=== PATIENT | male | born 1950 | race Caucasian/White ===

== ENCOUNTER → 2019-06-08 | Outpatient (CLI) | payer OTHER ==
[~2019-06-08] VITALS: Ht 182.9 cm; Wt 90.7 kg
[~2019-06-08] MED LIST: ALTACE5 MG PO; ASPIR 8181 M1 PO; SIMVASTATIN40 MG PO; VENTOLIN HFA INH8 GM INH
--- NOTE | 2019-06-13 11:07 | PATH ---
[facility] [place] [address] PATHOLOGY RPT PROCEDURE Name: BRANDON BAÑUELOS Room #: REG NICOLE Carissa.#: [id number] Admission: 06/08/19 Date of : 54 Discharge: Report #: [id number] Path Case #: [id number] [facility] Accession Number: [id number] . 01 Material submitted: . PART A: stomach - BIOPSY OF GASTRITIS TO R/O H. PYLORI PART B: esophagus - BIOPSY OF DISTAL ESOPHAGUS TO R/O MONROE'S. Modifiers: distal PART C: cecum - POLYP AT CECUM PART D: colon - POLYP AT SIGMOID COLON. Modifiers: sigmoid PART E: rectum - POYLP AT RECTUM X2 . 01 Clinical history: . Preop DX: Dysphagia, hx of polyps Postop DX: Grade B erosive esophagitis, possible monroe's, colon polyps A. r/o h. pylori B. r/o monroe's . 02 Diagnosis: A. Gastric mucosa, gastritis rule out H. pylori, endoscopic biopsy: - Mild chronic inflammation. - Negative for intestinal metaplasia or atrophy. - Negative for Helicobacter pylori (properly controlled immunohistochemical stain performed). . B. Gastroesophageal mucosa, distal esophagus to rule out Monroe's, endoscopic biopsy: - Gastric fundic-type mucosa with mild chronic inflammation. - Negative for intestinal metaplasia or dysplasia. - Squamous mucosa with mild esophagitis. . C. Polyp, at cecum, endoscopic biopsy: - Inflamed hyperplastic polyp. - Negative for dysplasia. . D. Polyp, at sigmoid colon, endoscopic biopsy: - Hyperplastic polyp. - Negative for dysplasia. . E. Polyp x 2, at rectum, endoscopic biopsy: - Hyperplastic polyp, multiple fragments. - Negative for dysplasia. (IUV/db; 06/10/2019) LBQ 06/10/2019 1234 Local . 02 Electronically signed: . Lizett Stockton MD, [place] [address] PATHOLOGY RPT PROCEDURE Name: BRANDON BAÑUELOS Room #: REG CLI Mohamud.#: [id number] Admission: 06/08/19 Date of : 54 Discharge: Report #: [id number] Path Case #: [id number]- [id number] . 01 Gross description: . A. Received in formalin labeled "Brandon Bañuelos BX of gastritis to r/o h. pylori," are four segments of gale-brown soft tissue measuring 0.7 x 0.6 x 0.1 cm in aggregate dimensions and ranging from 0.3 to 0.7 cm in maximum dimension. The specimen is submitted entirely in cassette A1. . B. Received in formalin labeled "Brandon Bañuelos, BX of distal esophagus to r/o monroe's," are two segments of gale-brown soft tissue measuring 0.4 x 0.2 x 0.1 cm and 0.5 x 0.2 x 0.1 cm in greatest dimensions. The specimen is submitted entirely in cassette B1. . C. Received in formalin labeled "Borders, Rbandon, polyp at cecum," are five segments of pale gale soft tissue measuring 0.5 x 0.5 x 0.1 cm in aggregate dimensions and ranging from 0.1 to 0.5 cm in maximum dimension. The specimen is submitted entirely in cassette C1. The smallest segments may not survive processing. . D. Received in formalin labeled "Borders, Brandon, polyp at sigmoid colon," are two segments of gale-brown soft tissue measuring 0.2 x 0.2 x 0.1 cm and 0.3 x 0.2 x 0.2 cm in greatest dimensions. The specimen is submitted entirely in cassette D1. . E. The specimen is received in formalin labeled "Borders, Brandon, polyp at rectum". The specimen source is listed on the requisition as "polyp at rectum x2". Received are four segments of gale soft tissue measuring 0.5 x 0.4 x 0.2 cm in aggregate dimensions and ranging from 0.2 to 0.3 cm in maximum dimension. The specimen is submitted entirely in cassette E1. ([facility]; 06/09/2019) XDC/XUT 06/09/[address] [place] [address] . 02 Pathologist provided ICD-10: K29.50, K20.8, K51.40, K63.5, K62.1 . 02 CPT . 132601, 592663, 235055, 346192, 306536, Q03546 Specimen Comment: A courtesy copy of this report has been sent to [phone], [phone] Specimen Comment: [id number] Specimen Comment: Report sent to and Specimen Comment: A duplicate report has been generated due to demographic updates. Performed at: [address] [place] [address] [address], [place], [place] [id number] MD Jose Ramon Mccormack MD Phone: [phone] Performed at: 02 [facility] [address] [place] [address] PATHOLOGY RPT PROCEDURE Name: BRANDON BAÑUELOS Room #: REG [facility] Dona.R.#: [id number] Admission: 06/08/19 Date of : 54 Discharge: Report #: [id number] Path Case #: [id number] [facility] [address] [place], [place] [id number] MD Lizett Stockton MD Phone: [phone]
--- NOTE | 2019-06-15 08:11 | P ---
[place] [address] PROCEDURE REPORT Name: BILL GO Room #: REG [facility]#: [id number] Admission: 06/08/19 Attend Phys: Jovan Rome Discharge: Date of : 54 Report #: [id number] THIS REPORT FOR: //name// CC: Jovan Quiñonez MD DATE OF SERVICE: 06/08/2019 PROCEDURE PERFORMED: Colonoscopy with biopsies. HISTORY OF PRESENT ILLNESS: The patient is a 69-year-old male with history of colon polyps, last colonoscopy in 2010. No family history of colon cancer. DESCRIPTION OF PROCEDURE: The risks and benefits of the procedure were explained to the patient, those risks including but not limited to bleeding, perforation and the risk of sedation. He understood these risks and gave informed consent. Sedation was given using propofol per anesthesia. Next, a digital rectal exam was initially performed, which was normal. Next, using a standard Olympus colonoscope, the scope was placed in the patient's anus and advanced under direct vision to the cecum. The overall prep was excellent. In the cecum, there was a 3 mm sessile polyp. This was removed with cold forceps, otherwise normal. The ileocecal valve was normal. The ascending, transverse and descending colon were normal. In the sigmoid colon, there was a 4 mm sessile polyp. This was removed by cold forceps. A few small scattered diverticula also noted. In the rectum, there were two 3-4 mm sessile polyps, both removed by cold forceps. On retroflexion, no abnormalities were noted. The scope was then withdrawn and the procedure terminated. The patient tolerated the procedure well. IMPRESSION: 1. Small colonic polyps as described above. 2. Sigmoid diverticulosis. 3. Otherwise, normal colonoscopy. RECOMMENDATIONS: 1. Await biopsy results. 2. If polyps are hyperplastic, repeat in 10 years; if adenomatous polyps, repeat in 5 years. Thank you for allowing me to participate in his care. <ELECTRONICALLY SIGNED> By: Jovan Batista MD 06/15/19 0811 1125 [id number] Jovan Batista MD /nt
--- NOTE | 2019-06-15 08:11 | P ---
[facility] [place] [address] PROCEDURE REPORT Name: BILL GO Room #: REG [facility]#: [id number] Admission: 06/08/19 Attend Phys: Jovan Rome Discharge: Date of : 54 Report #: [id number] THIS REPORT FOR: //name// CC: Jovan Quiñonez MD DATE OF SERVICE: 06/08/2019 PROCEDURE PERFORMED: Upper endoscopy with biopsies and esophageal dilation. HISTORY OF PRESENT ILLNESS: The patient is a 69-year-old male with a history of intermittent dysphagia. No previous history of upper endoscopy. Denies any significant heartburn. He is also here today for routine followup colonoscopy. He has a history of polyps in the past. DESCRIPTION OF PROCEDURE: The risks and benefits of the procedure were explained to the patient, those risks including but not limited to bleeding, perforation and the risk of sedation. He understood these risks and gave informed consent. Sedation was given using propofol per anesthesia. Next, using a standard Olympus upper endoscope, the scope was placed in the patient's mouth and advanced under direct vision through the esophagus, stomach and into the second portion of the duodenum. The larynx was normal in appearance. The upper and mid esophagus was normal. In the distal esophagus, grade B erosive esophagitis was noted with a possible short segment of Ochoa's. Biopsies were obtained. There was a mild gastritis noted in the fundus and upper body of the stomach. Biopsies were obtained to rule out H. pylori. The pylorus was normal and patent. The duodenal bulb, first and second portion were all normal. The scope was then brought back up into the patient's stomach and a Savary guidewire was inserted through the scope, leaving the guidewire in place as the scope was then withdrawn. Next, a 51-Upper Sorbian Savary dilation of the esophagus was then performed without difficulty. The wire and dilator were removed. The scope was reintroduced into the patient's stomach. There was no evidence of mucosal tear after dilation. The scope was then withdrawn and the procedure terminated. The patient tolerated the procedure well. IMPRESSION: 1. Grade B erosive esophagitis. 2. 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 3. Mild gastritis. 4. Otherwise, normal upper endoscopy. RECOMMENDATIONS: 1. Await biopsy results. 2. Recommend daily PPI therapy. 3. Observe the patient post-dilation. [address] [address] PROCEDURE REPORT Name: BILL GO [facility]: [facility] [id number] Admission: 06/08/19 Attend Phys: Jovan Rome Discharge: Date of : 54 Report #: [id number] 4. We will proceed with colonoscopy next today. Thank you for allowing me to participate in his care. <ELECTRONICALLY SIGNED> By: Jovan Batista MD 06/15/19 0811 1054 2308 Jovan Batista MD /eileen
== END | disposition home or self-care (01) ==
LOC: GI 08:58
DX: Z12.11 Encounter for screening for malignant neoplasm of colon (principal); Z86.010 Personal history of colon polyps; K51.40 Inflammatory polyps of colon without complications; K57.30 Diverticulosis of large intestine without perforation or abscess without bleeding; K62.1 Rectal polyp; K29.50 Unspecified chronic gastritis without bleeding; R13.19 Other dysphagia; K20.9 Esophagitis, unspecified; I10 Essential (primary) hypertension; E78.5 Hyperlipidemia, unspecified; J43.9 Emphysema, unspecified; F17.210 Nicotine dependence, cigarettes, uncomplicated; Z98.890 Other specified postprocedural states; Z95.1 Presence of aortocoronary bypass graft; Z79.899 Other long term (current) drug therapy; Z79.82 Long term (current) use of aspirin
CPT/HCPCS: 62110; 62900

== ENCOUNTER → 2019-08-24 | Outpatient (CLI) | payer OTHER | LOC: SJCVC 08:00 → SJCVCIMAG 08-25 15:39 | DX: I25.810 Atherosclerosis of coronary artery bypass graft(s) without angina pectoris (principal); I65.23 Occlusion and stenosis of bilateral carotid arteries; E78.00 Pure hypercholesterolemia, unspecified; I10 Essential (primary) hypertension; J44.9 Chronic obstructive pulmonary disease, unspecified; F17.210 Nicotine dependence, cigarettes, uncomplicated; Z72.89 Other problems related to lifestyle; Z79.82 Long term (current) use of aspirin; Z79.899 Other long term (current) drug therapy ==

== ENCOUNTER → 2019-12-29 | Outpatient (CLI) | payer OTHER | LOC: SJCVCIMAG 10:36 | PROVIDERS: ATTEND Internal Medicine Cardiovascular Disease | DX: I08.1 Rheumatic disorders of both mitral and tricuspid valves (principal); I25.810 Atherosclerosis of coronary artery bypass graft(s) without angina pectoris; E78.49 Other hyperlipidemia; I10 Essential (primary) hypertension; J44.9 Chronic obstructive pulmonary disease, unspecified; I65.23 Occlusion and stenosis of bilateral carotid arteries; E78.00 Pure hypercholesterolemia, unspecified; F17.200 Nicotine dependence, unspecified, uncomplicated; Z95.1 Presence of aortocoronary bypass graft ==

== ENCOUNTER → 2020-01-02 | Outpatient (CLI) | payer OTHER | LOC: SJCVCIMAG 11:01 | PROVIDERS: ATTEND Internal Medicine Cardiovascular Disease | DX: I25.810 Atherosclerosis of coronary artery bypass graft(s) without angina pectoris (principal); I49.3 Ventricular premature depolarization; E78.5 Hyperlipidemia, unspecified; J44.9 Chronic obstructive pulmonary disease, unspecified; F17.200 Nicotine dependence, unspecified, uncomplicated; Z95.1 Presence of aortocoronary bypass graft ==

== ENCOUNTER → 2020-01-24 | Outpatient (CLI) | payer OTHER ==
[~2020-01-24] VITALS: Ht 182.9 cm; Wt 90.3 kg
[2020-01-24 07:15] VITALS: BP 142/80
[2020-01-24 07:28] LABS: ABSOLUTE NEUTROPHILS 3.1 thou/uL (1.4-8.2); BASOPHILS 0.6 % (0.0-2.0); HEMOGLOBIN 15.1 gm/dL (14.0-18.0); LYMPHOCYTES 26.4 % (24.0-44.0); MCH 32.5 pg (26.0-34.0); MCHC 34.4 g/dL (28.0-37.0); MCV 94.6 fL (80.0-100.0); MONOCYTES 11.8 % (1.0-8.0); PLATELET COUNT 247 thou/uL (150-400); POLYS 59.2 % (36.0-66.0); RBC 4.65 mil/uL (4.50-6.00); RDW 13.7 % (10.5-14.5); WBC 5.3 thou/uL (4.0-11.0)
[2020-01-24 07:38] LABS: CALCIUM 8.4 mg/dL (8.5-10.1); CREATININE 0.8 mg/dL (0.7-1.3); POTASSIUM 3.8 mmol/L (3.5-5.1)
--- NOTE | 2020-01-24 07:54 | EKG ---
[facility] [place] [address] ELECTROCARDIOGRAM REPORT Name: BILL GO Room #: REG [facility]#: [id number] Admission: 01/24/20 Attend Phys: Frankie Lindo MD, Discharge: Date of : 54 Report #: [id number] THIS REPORT FOR: cc: Kiersten Tsang MD, Stany A. MD Lundgren,Randy Alcaraz MD [facility] ~ THIS REPORT FOR: //name// [facility] Test Date: 2020-01-24 Test Time: 07:13:29 Pat Name: BILL GO Department: Room: Gender: Sports Book Board Attendant: SHAYNA : 1950 Requested By: Frankie Lindo Order Number: [id number] MD: Randy Brenner Measurements Intervals [place] Rate: 62 P: 29 CO: 176 QRS: 49 QRSD: 98 T: 16 QT: 401 QTc: 408 Interpretive Statements Sinus rhythm Atrial premature complex No previous ECG available for comparison Electronically Signed On 01-24-2020 7:54:08 CDT by Randy Brenner [email or web address] <ELECTRONICALLY SIGNED> By: Randy Brenner MD, FAC 01/24/20 0754 2 Randy Brenner MD, [facility] /EPI
--- NOTE | 2020-01-24 12:43 | CATHLAB ---
[facility] [place] [address] INVASIVE PROCEDURE REPORT Name: BILL GO Room #: MILADY FerrerPatricio#: [id number] Admission: 01/24/20 Attend Phys: Frankie Lindo MD, Discharge: Date of : 54 Report #: [id number] THIS REPORT FOR: cc: Kiersten Tsang MD, Stany A. MD Mancuso, Gerald M. MD [facility] ~ APPROVED REPORT Study performed: 01/24/2020 07:29:27 Patient Details Patient Status: Out-Patient Room #: The patient is a 69 year-old male Event Personnel Frankie Lindo Electric Powerline Examiner, Rosa Maria Johnston RN RN, Susan Sena RTR, Precious Anne Carly RTR Monitor Procedures Performed Art Access - R femoral artery* Left Heart Cath Coronaries, Bypass Grafts [id number] LHCCORCABG Renal Bilateral Peripheral Angiography [id number] CVRENALBIL Aortogram Abdominal Peripheral Angio 465389 77541 Initial Mod Sed Same Phys/QHP Gr5y 113837 41259 Mod Sed Same Phys/QHP Ea 106979 Hemostasis w/ Mynx Procedure Narrative The Right Groin^ was infiltrated with 1% Lidocaine subcutaneous anesthesia. A PINNACLE 6FR Sheath #[id number] sheath was inserted into the RFA^. Coronary angiography was performed using coronary diagnostic catheters. The right coronary system was accessed and visualized with a JR4 catheter. The left coronary system was accessed and visualized with a JL4 catheter. The left ventricle was accessed and visualized with a PIGTAIL catheter. Left ventriculogram was performed in 30 degree projection. An aortogram of the abdominal aorta was performed. Pre-demployment femoral angiogram was performed . Closure device was deployed with a Fr MYNXGRIP 6/7F #[id number]. The patient tolerated the procedure well and there were no complications associated with the procedure. There was no hematoma. Intraoperative Conscious Sedation Sedation start time: 8:36 Case end Time: 9:06 Fentanyl 50 mcg Versed [address] [address] INVASIVE PROCEDURE REPORT Name: BILL GO [id number] Admission: 01/24/20 Attend Phys: Frankie Lindo, Discharge: Date of : 54 Report #: [id number] Fluoro Time: 5.30 minutes Dose: DAP 89416.00 cGycm2 1285 mGy Contrast Type and Amount: Omnipaque 145 ml Hemodynamics The aortic pressure is 126/63 mmHg with a mean of 75 mmHg. The left ventricular pressure is 130/12 mmHg with a mean of mmHg. The left ventricular end diastolic pressure is 24 mmHg. Conclusion 1. Normal left jugular size and systolic function EF 60% #2 abdominal aortogram mild aortic ectasia possible small aneurysm will evaluate noninvasively. #3 [place] left system essentially occluded. Filling of a small septal trestle mechanic then occlusion of LAD and circumflex #4 the LAYTON to LAD is intact LAD extends around the apex mild disease #5 SVG to moderate size diagonal and OM branch sequentially is widely patent these vessels have mild disease. 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 #8 left renal artery is an ostial lesion of 30 to 40% not flow-limiting #9 right renal artery widely patent. Recommendations and plan: Continue aggressive risk factor modification no indication for coronary intervention. We will follow-up next year with an aortoiliac ultrasound to evaluate small aortic aneurysm. <ELECTRONICALLY SIGNED> By: Frankie Lindo MD, FACC 01/24/20 1243 1243 1243 Frankie Lindo MD, FACC /INF
== END | disposition home or self-care (01) ==
LOC: CATH 06:40
PROVIDERS: ATTEND Internal Medicine Cardiovascular Disease
DX: R07.9 Chest pain, unspecified (principal); I25.10 Atherosclerotic heart disease of native coronary artery without angina pectoris; I70.1 Atherosclerosis of renal artery; I77.811 Abdominal aortic ectasia; I10 Essential (primary) hypertension; E78.5 Hyperlipidemia, unspecified; J44.9 Chronic obstructive pulmonary disease, unspecified; F17.210 Nicotine dependence, cigarettes, uncomplicated; Z95.1 Presence of aortocoronary bypass graft; Z98.890 Other specified postprocedural states; Z79.899 Other long term (current) drug therapy

== ENCOUNTER → 2020-08-24 | Outpatient (CLI) | payer OTHER, MEDICARE | LOC: SJCVCIMAG 07:55 | PROVIDERS: ATTEND Internal Medicine Cardiovascular Disease | DX: I25.10 Atherosclerotic heart disease of native coronary artery without angina pectoris (principal); I10 Essential (primary) hypertension; E78.00 Pure hypercholesterolemia, unspecified; I65.23 Occlusion and stenosis of bilateral carotid arteries; R19.00 Intra-abdominal and pelvic swelling, mass and lump, unspecified site; I77.819 Aortic ectasia, unspecified site; J44.9 Chronic obstructive pulmonary disease, unspecified; F17.210 Nicotine dependence, cigarettes, uncomplicated; Z86.16 Personal history of COVID-19; Z79.82 Long term (current) use of aspirin; Z79.899 Other long term (current) drug therapy; Z72.89 Other problems related to lifestyle; Z95.1 Presence of aortocoronary bypass graft ==

== ENCOUNTER → 2021-05-06 | Outpatient (CLI) | payer OTHER, MEDICARE | LOC: SJCVCIMAG 07:13 | PROVIDERS: ATTEND Internal Medicine Cardiovascular Disease | DX: I34.0 Nonrheumatic mitral (valve) insufficiency (principal); Z95.1 Presence of aortocoronary bypass graft ==